=== PATIENT | male | born 1980 | race Caucasian/White ===

== ENCOUNTER 2019-02-13 17:29 | Emergency (ER) | payer MEDICAID, SELFPAY ==
[2019-02-13 17:39] VITALS: BP 137/88; PULSE 94; RESP 18; TEMP 36.6; O2SAT 98
--- NOTE | 2019-02-13 18:08 | W.ED.GENAD ---
Discharge Plan Disposition Patient Disposition: HOME Condition: Good Discharge Details Chief Complaint: DentalOral Clinical Impression: Pain, dental Primary Care Provider: None,None ED Provider: Giancarlo Steen Home Meds and New Rx's Prescriptions: New amoxicillin-pot clavulanate [Augmentin] 875-125 mg tablet 1 tab PO BID Qty: 20 RF: 0 acetaminophen [Mapap Extra Strength] 500 MG tablet 1,000 mg PO Q6H 5 Days Qty: 60 RF: 0 ibuprofen [Motrin IB] 200 MG tablet 600 mg PO Q6H 5 Days Qty: 60 RF: 0 Discharge Instructions Instructions: Toothache (ED) Additional Instructions: Please take the antibiotic, Tylenol and Motrin as directed. Please follow-up as soon as possible with your dentist. If you notice any worsening of your symptoms, or any new symptoms such as vomiting, diarrhea, fever, chills, shortness of breath, chest pain, numbness, weakness, or fainting , please return immediately to the emergency department for reevaluation. Please follow up with your primary care provider as soon as possible for reassessment and reevaluation. As always, it was a pleasure participating in your medical care today. Medical Decision Making This is a pleasant 38-year-old male who presents today for evaluation of right lower dental pain. He has known dental caries but has not been able to follow-up with a dentist. Exam demonstrates notably poor dentition in the right lower teeth, old fractured teeth. Small area of periapical abscess around the remains of tooth 27. Incision and drainage was performed, notable amount of pus was exuded. Patient tolerated this well. Patient will be given his first dose of Augmentin here and a prescription for home use. He did receive dental block and had complete resolution of his pain with this. Recommend continued antibiotics and NSAIDs. We will give a dental follow-up sheet. I have extensively reviewed the treatment plan and discharge instructions with the patient. I have addressed all patient concerns at this time. The patient was made aware of what symptoms to monitor for that would warrant a return to the emergency department. Discussed the plan with the patient, they demonstrate verbal understanding and agreement with our assessment and plan at this time. HPI General Date/Time Provider Initiated Documentation: 02/13/19 17:56. HPI Narrative: This is a 38-year-old male who presents today for evaluation of right lower dental pain. Patient states that over the last few weeks he has had increasing pain in his right lower jaw. He has known dental caries and severely fractured and chronically infected teeth. Secondary to work obligations he has not been able to follow-up with a dentist. He has been taking Tylenol and Motrin this notably helps his pain. He denies any fever chills headache or neck pain. He denies any other complaints or modifying factors. Related Data Home Medications Medication Instructions Recorded Confirmed acetaminophen [Mapap Extra 1,000 mg PO Q6H 5 Days #60 tab 02/13/19 Strength] amoxicillin-pot clavulanate 1 tab PO BID #20 tab 02/13/19 [Augmentin] ibuprofen [Motrin Ib] 600 mg PO Q6H 5 Days #60 tab 02/13/19 Previous Rx's Medication Instructions Recorded acetaminophen [Mapap Extra 1,000 mg PO Q6H 5 Days #60 tab 02/13/19 Strength] amoxicillin-pot clavulanate 1 tab PO BID #20 tab 02/13/19 [Augmentin] ibuprofen [Motrin Ib] 600 mg PO Q6H 5 Days #60 tab 02/13/19 Allergies Allergy/AdvReac Type Severity Reaction Status Date / Time codeine AdvReac Unverified 02/13/19 17:42 General Stated Complaint: DentalOral JACQUE: 4 Review of Systems Review of Systems All systems reviewed & are unremarkable except as noted in HPI and below PFSH Social History Smoking/Tobacco Use Status: Former Tobacco Use Alcohol Intake: never Drug use: Never Do you feel safe at home: Yes Do you feel safe in your relationship?: Yes Exam Narrative Exam Narrative: 1.Const: Well-nourished, Well-developed, appearing stated age 2.Eyes: PERRL, no conjunctival injection, and symmetrical lids. 3.ENT: Atraumatic external nose and ears. Moist MM. Neck: Symmetric, trachea midline, No thyromegaly. Notably poor dentition, particularly around teeth 24 through 29 with old fractured teeth with severe caries. Small area of fluctuance over the right anterior lateral lower jaw border. No evidence of Max's angina or swelling in the throat. 4.CVS: +S1/S2, No murmurs or gallops. Peripheral pulses 2+ and equal in all extremities. Brisk capillary refill in all extremities. 5.RESP: Unlabored respiratory effort. Clear to auscultation bilaterally. No wheezes rales or rhonchi 6.GI: Soft, Nontender/Nondistended, No hepatosplenomegaly. No guarding or rebound. 7.MSK: Normocephalic/Atraumatic, Extremities w/o deformity or ttp No cyanosis or clubbing, Normal movement of all extremities 8.Skin: Warm, Dry. No rashes or lesions. 9.Neuro: asset management lead II-XII grossly intact. Sensation grossly intact, no focal neurologic deficits. 10.Psych: (AAO) x3. Appropriate mood and affect Course Vital Signs Temperature 36.6 C 02/13/19 17:39 Pulse 94 H 02/13/19 17:39 Respiratory Rate 18 02/13/19 17:39 Blood Pressure 137/88 02/13/19 17:39 Pulse Oximetry 98 02/13/19 17:39 Temperature 36.6 C 02/13/19 17:39 Temperature Source Temporal Artery Scan 02/13/19 17:39 Pulse 94 H 02/13/19 17:39 Respiratory Rate 18 02/13/19 17:39 Respiratory Effort 02/13/19 17:42 Blood Pressure 137/88 02/13/19 17:39 Blood Pressure Position Sitting 02/13/19 17:39 Pulse Oximetry 98 02/13/19 17:39 Oxygen Delivery Method Room Air 02/13/19 17:39 Oxygen Flow Rate 0 02/13/19 17:39 Pain Level 9 02/13/19 17:39
[2019-02-13] MEDS: Amoxicillin 875/Clav. 125 TAB PO (18:11)
== END 2019-02-13 18:34 | disposition home or self-care (01) ==
PROVIDERS: Emergency Provider Student in an Organized Health Care Education/Training Program
DX: R68.84 Jaw pain (principal); K04.7 Periapical abscess without sinus
CPT/HCPCS: 41800